=== PATIENT | male | born 1935 | race Caucasian/White ===

== ENCOUNTER 2023-08-26 06:37 | Day surgery (SDC) | payer BC, MEDICARE ==
[2023-08-25 11:23] LABS: BASOPHILS % (AUTO) 0.4 % (0-1); EOSINOPHILS # (AUTO) 0.2 X10'3 (0-0.9); EOSINOPHILS % (AUTO) 3.4 % (0-6); HEMATOCRIT 36.3 % (42.0-52.0); HEMOGLOBIN 12.7 g/dl (14.0-17.9); LYMPHOCYTES # (AUTO) 1.3 X10'3 (1.1-4.8); LYMPHOCYTES % (AUTO) 22.7 % (21-51); MEAN CORPUSCULAR HEMOGLOBIN 30.9 PG (27.0-31.0); MEAN CORPUSCULAR VOLUME 88.1 FL (78-98); MEAN PLATELET VOLUME 7.4 FL (7.4-10.4); MONOCYTES # (AUTO) 0.4 X10'3 (0-0.9); NEUTROPHILS # (AUTO) 3.6 X10'3 (1.8-7.7); NEUTROPHILS % (AUTO) 65.5 % (42-75); PLATELET COUNT 210 X10'3 (140-440); RED BLOOD COUNT 4.12 X10'6 (4.70-6.10); RED CELL DISTRIBUTION WIDTH 14.3 % (11.5-14.5); WHITE BLOOD COUNT 5.6 X10'3 (4.5-11.0)
[2023-08-25 11:32] LABS: ALBUMIN 3.8 G/DL (3.4-5.0); ANION GAP 7 (8-16); BLOOD UREA NITROGEN 13 MG/DL (7-18); CALCIUM 9.1 MG/DL (8.5-10.1); CHLORIDE 103 MMOL/L (99-107); CREATININE 0.93 MG/DL (0.60-1.10); GLUCOSE 97 MG/DL (70-104); POTASSIUM 3.9 MMOL/L (3.5-5.1); SODIUM 138 MMOL/L (135-145); TOTAL CARBON DIOXIDE 28.2 MMOL/L (24-32); eGFR 77 ML/MIN
[2023-08-25 11:35] LABS: APTT 27 SECONDS (22-32)
[~2023-08-26] VITALS: Ht 172.7 cm; Wt 83.0 kg
[2023-08-26] VITALS (10 sets, daily range): BP systolic 104–149; BP diastolic 50–80; PULSE 55–67; RESP 15–17; TEMP 98; O2SAT 93–97
[~2023-08-26 06:37] MED LIST: ASPI-1071 PO; ATOR40TA PO; ESOM20CA10 PO; GLUC1TAB9 PO; LISI5TAB22 PO; MULT-1141 PO; OMEG-79 PO; SOTA80TA73 PO; TADA5TAB2 PO; TEST75GE10 TOP
[2023-08-26] MEDS ORDERED: cefazolin 2gm/D5W 100mL 100 ML IV ONE (06:50)
[2023-08-26] MEDS ORDERED: clindamycin-Cleocin 900mg/D5W 50 ML IV ONE (06:50)
[2023-08-26] MEDS ORDERED: normal saline 1000ml 1,000 ML IV SCH (06:50)
[2023-08-26] MEDS ORDERED: GLUC1TAB9 PO (07:05)
[2023-08-26] MEDS ORDERED: ARMO200T4 PO (07:07)
[2023-08-26] MEDS ORDERED: FINA5TAB11 PO (07:07)
[2023-08-26] MEDS ORDERED: CHOL20002 PO (07:08)
[2023-08-26] MEDS ORDERED: NIAC500C12 PO (07:09)
[2023-08-26] MEDS ORDERED: prevagen (07:09)
[2023-08-26] MEDS ORDERED: ceFAZolin 1000mg inj ONE (09:18)
[2023-08-26] MEDS ORDERED: midazolam 1 mg/ML 2ml injection ONE (09:18)
[2023-08-26] MEDS ORDERED: fentaNYL/PF 50MCG/1 ML 2ML syringe ONE (09:18)
[2023-08-26] MEDS ORDERED: LIDOcaine 1% W/epiNEPHrine 1:100,000 20ml vial ONE (09:18)
[2023-08-26] MEDS ORDERED: iohexol 350 MG/ML 50ML vial IV ONE (09:19)
[2023-08-26] MEDS ORDERED: HYDROcodone/acetaminophen 10/325mg tab PO PRN (12:10)
[2023-08-26] MEDS ORDERED: HYDROcodone/acetaminophen 5mg/325mg tablet PO PRN (12:10)
[2023-08-26] MEDS ORDERED: VANCOMYCIN 1,500MG in normal saline IV soln 300 ML IV ONE (12:10)
[2023-08-26] MEDS ORDERED: vancomycin/NS 1 GM ADD-VANTAGE 250 ML X 1 DOSE IV ONE (12:20)
== END 2023-08-26 16:50 | disposition home or self-care (01) ==
LOC: SSTAY O 06:37
PROVIDERS: ATTEND Internal Medicine Cardiovascular Disease
DX: I49.5 Sick sinus syndrome (principal); I25.10 Atherosclerotic heart disease of native coronary artery without angina pectoris; I35.0 Nonrheumatic aortic (valve) stenosis; I10 Essential (primary) hypertension; E78.5 Hyperlipidemia, unspecified; G47.33 Obstructive sleep apnea (adult) (pediatric); M19.90 Unspecified osteoarthritis, unspecified site; E66.9 Obesity, unspecified; Z68.27 Body mass index [BMI] 27.0-27.9, adult; Z95.1 Presence of aortocoronary bypass graft; Z79.899 Other long term (current) drug therapy; Z79.01 Long term (current) use of anticoagulants; Z98.41 Cataract extraction status, right eye; Z98.42 Cataract extraction status, left eye; Z98.890 Other specified postprocedural states; Z96.652 Presence of left artificial knee joint; Z88.8 Allergy status to other drugs, medicaments and biological substances; Z72.89 Other problems related to lifestyle; Z82.49 Family history of ischemic heart disease and other diseases of the circulatory system; Z80.9 Family history of malignant neoplasm, unspecified
CPT/HCPCS: 33208; 36415; 71046; 80048; 85025; 85610; 85730; 93005; 99152; 99153; C1785; C1898; J0690; J2250; J3010; J3370; J3490; J7030; Q9967; A4565; A6258; A6449